=== PATIENT | male | born 1985 | race Caucasian/White ===

== ENCOUNTER 2021-09-04 11:54 | Outpatient (CLI) | payer BC ==
[2021-09-04] MEDS ORDERED: Iopamidol 370 76% 100 ML VIAL ONE (16:06)
== END 2021-09-04 11:55 | disposition home or self-care (01) ==
LOC: CT 11:54
PROVIDERS: ATTEND Family Medicine
DX: R10.10 Upper abdominal pain, unspecified (principal)
CPT/HCPCS: 74178